=== PATIENT | male | born 1980 ===

== ENCOUNTER 2017-04-26 19:50 | Emergency (ER) | payer SELFPAY ==
[2017-04-26 19:59] VITALS: BP 134/87; PULSE 75; RESP 18; TEMP 98.9; O2SAT 99
--- NOTE | 2017-04-26 20:14 | ED PDOC ---
Lower Extremity Pain/Injury Time Seen by Provider: 04/26/17 19:56 Chief Complaint (Nursing): Lower Extremity Problem/Injury Chief Complaint (Provider): Left Knee Pain History Per: Patient History/Exam Limitations: no limitations Onset/Duration Of Symptoms: Days (x6) Current Symptoms Are (Timing): Still Present Additional Complaint(s): 36 year old male presenting to the ED complaining of left knee pain. 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 He states that he landed with all the weight on his left foot. Patient has taken nothing for pain. Denies previous fracture. Patient reports he has been limping since Friday. PMD: FAMILY PROVIDER,NO - Knee Description Of Injury: Fell Currently Unable To: Bend Or Move - Risk Factors DVT Risk Factors: Pos: None Past Medical History Reviewed: Historical Data, Nursing Documentation, Vital Signs Vital Signs: Last Vital Signs Temp 98.9 F 04/26/17 19:56 Pulse 75 04/26/17 19:56 Resp 18 04/26/17 19:56 BP 134/87 04/26/17 19:56 Pulse Ox 99 04/26/17 19:56 - Medical History PMH: No Chronic Diseases - Surgical History Surgical History: No Surg Hx - Family History Family History: States: Unknown Family Hx - Living Arrangements Living Arrangements: With Family - Social History Current smoker - smoking cessation education provided: No Ex-Smoker (has not smoked in the last 12 months): No Alcohol: None Drugs: Denies - Allergies Allergies/Adverse Reactions: Allergies Allergy/AdvReac Type Severity Reaction Status Date / Time No Known Allergies Allergy Verified 04/26/17 19:59 Review of Systems ROS Statement: Except As Marked, All Systems Reviewed And Found Negative Musculoskeletal: Positive for: Leg Pain (left), Other (left knee pain) Physical Exam - Reviewed Nursing Documentation Reviewed: Yes Vital Signs Reviewed: Yes - Physical Exam Appears: Positive for: No Acute Distress Head Exam: Positive for: NORMAL INSPECTION Skin: Positive for: Normal Color, Warm, Dry. Negative for: Rash Eye Exam: Positive for: Normal appearance, EOMI, PERRL Extremity: Positive for: Normal ROM (limited ROM of left leg secondary to pain) , Tenderness (tenderness to patella and medial and lateral aspect of left knee.) , Calf Tenderness, Other (no effusionor ecchymosis to left knee.). Negative for : Deformity, Swelling Neurologic/Psych: Positive for: Alert, Oriented - ECG O2 Sat by Pulse Oximetry: 99 (RA) Pulse Ox Interpretation: Normal Medical Decision Making Medical Decision Makin Initial Impression 36 y/o male presenting with left knee pain Initial Plan: * Reevaluation CT IMPRESSION: 1. Proximal fibular fracture. 2. Incidental/non-acute findings are described above. Pt placed in knee immobilizer and instructed in crutch walking. Given Ortho referral, and importance of follow up stressed Documented by Kathrin Irene acting as a scribe for Pastora Best PA-C. All medical record entries made by the Scribe were at my direction and personally dictated by me. I have reviewed the chart and agree that the record accurately reflects my personal performance of the history, physical exam, medical decision making, and the department course for this patient. I have also personally directed, reviewed, and agree with the discharge instructions and disposition. Disposition - Clinical Impression Clinical Impression: Fibula fracture - Patient ED Disposition Is Patient to be Admitted: No - Disposition Disposition: Routine/Home Disposition Time: 23:16 Condition: STABLE Forms: [facility] (Belarusian) - POA Present On Arrival: Falls Or Trauma
[2017-04-26] MEDS ORDERED: Oxycodone/Acetaminophen 5/325 mg Tab PO STA (20:40)
[2017-04-26] MEDS ORDERED: Oxycodone/Acetaminophen 5/325 mg Tab ONE (20:44)
--- NOTE | 2017-04-26 21:55 | CT ---
EXAM: CT Left Lower Extremity Without Intravenous Contrast, Knee CLINICAL HISTORY: 36 years old, male; Injury or trauma; Fall; Work related; Initial encounter; Laceration; Patella or knee; Left; Without foreign body; Injury date: Today; Injury details: Falling off roof at work; Additional info: R/O tibial plateau fracture TECHNIQUE: Axial computed tomography images of the left knee without intravenous contrast. All CT scans at this facility use one or more dose reduction techniques, viz.: automated exposure control; ma/kV adjustment per patient size (including targeted exams where dose is matched to indication; i.e. head); or iterative reconstruction technique. COMPARISON: CR - KNEE 3 VIEWS LT 2017-04-26 20:36 FINDINGS: Bones/joints: Apparent nondisplaced fracture head of fibula. No dislocation. Trace joint effusion. Soft tissues: Moderate stranding within anterior soft tissues. Punctate calcification or foreign body along soft tissues to patella. IMPRESSION: 1. Proximal fibular fracture. 2. Incidental/non-acute findings are described above.
--- NOTE | 2017-04-27 08:40 | RAD ---
PROCEDURE: Left Femur Radiographs. HISTORY: pain s/o fall from 6 ft COMPARISON: None. TECHNIQUE: Two single frontal views of the left femur been submitted. The request is for single view left femur radiograph. FINDINGS: FEMUR: No acute fracture or destructive bony lesion identified. SOFT TISSUES: Normal. OTHER FINDINGS: None. IMPRESSION: Unremarkable radiographs of the left femur.
--- NOTE | 2017-04-27 08:41 | RAD ---
PROCEDURE: Left Knee Radiographs. HISTORY: Pain. COMPARISON: None. FINDINGS: BONES: No acute fracture or destructive bony lesion identified. JOINTS: Normal. No osteoarthritis. JOINT EFFUSION: None. OTHER FINDINGS: None. IMPRESSION: Unremarkable radiographs of the left knee.
--- NOTE | 2017-04-27 08:47 | RAD ---
PROCEDURE: Radiographs of the left tibia and fibula. HISTORY: pain s/o fall from 6 ft COMPARISON: None available. TECHNIQUE: Frontal and lateral views obtained. FINDINGS: BONES: No fracture or destructive lesion appreciable. However see separate left knee CT exam without contrast which demonstrates a nondisplaced fibular fracture, also performed 04/26/2017. JOINT SPACES: Unremarkable. OTHER FINDINGS: None. IMPRESSION: Unremarkable radiographs of the left tibia and fibula. See separate left knee CT demonstrating left fibular fracture also performed 04/26/2017.
== END 2017-04-26 23:41 | disposition home or self-care (01) ==
LOC: H.ER 19:50
DX: S82.402A Unspecified fracture of shaft of left fibula, initial encounter for closed fracture (principal); W19.XXXA Unspecified fall, initial encounter; Y99.0 Civilian activity done for income or pay

== ENCOUNTER 2018-08-20 00:49 | Emergency (ER) | payer SELFPAY ==
[2018-08-20 02:07] LABS: URINE BILIRUBIN NEGATIVE (NEGATIVE); URINE BLOOD NEGATIVE (NEGATIVE); URINE CLARITY CLEAR (Clear); URINE COLOR COLORLESS (YELLOW); URINE GLUCOSE (UA) NEG (NEGATIVE); URINE LEUKOCYTE ESTERASE NEG Leu/uL (Negative); URINE PROTEIN NEGATIVE (NEGATIVE); URINE UROBILINOGEN 0.2-1.0 mg/dL (0.2-1.0)
--- NOTE | 2018-08-20 02:52 | ED PDOC ---
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 States its the lower back on both sides, worsened by activity, states it started after lifting heavy objects at work. States he had a previous injury 10 years ago and was diagnosed with "lumbago" but only was taking tylenol for pain. Denies numbness, weakness, loss of urine/stool, or any other symptoms. No fevers, chills. States he was also worried about his kidneys because he was having burning upon urination. Past Medical History Reviewed: Historical Data, Nursing Documentation Vital Signs: Last Vital Signs Temp 98.7 F 08/20/18 00:55 Pulse 74 08/20/18 00:55 Resp 16 08/20/18 00:55 BP 137/74 08/20/18 00:55 Pulse Ox 98 08/20/18 00:55 Primary Care Provider: FAMILY PROVIDER,NO - Medical History PMH: No Chronic Diseases - Family History Family History: States: Unknown Family Hx - Immunization History Hx Tetanus Toxoid Vaccination: No Hx Pneumococcal Vaccination: No - Home Medications Home Medications: Ambulatory Orders Medication Instructions Recorded Acyclovir [Zovirax] 800 mg PO 5XD #35 tab 01/14/18 Prednisone [Deltasone] 40 mg PO DAILY #8 tablet 01/14/18 traMADol [Ultram] 50 mg PO TID #7 tab 01/14/18 Cyclobenzaprine [Cyclobenzaprine 10 mg PO BID #15 tab 08/20/18 HCl] Ibuprofen [Motrin Tab] 600 mg PO Q6 #30 tab 08/20/18 Lidocaine 1 each TP DAILY #10 adh..patch 08/20/18 - Allergies Allergies/Adverse Reactions: Allergies Allergy/AdvReac Type Severity Reaction Status Date / Time No Known Allergies Allergy Verified 04/26/17 19:59 Review of Systems ROS Statement: Except As Marked, All Systems Reviewed And Found Negative Genitourinary Male: Positive for: Dysuria Musculoskeletal: Positive for: Back Pain Physical Exam - Reviewed Nursing Documentation Reviewed: Yes Vital Signs Reviewed: Yes - Physical Exam Appears: Positive for: Well, Non-toxic, No Acute Distress Head Exam: Positive for: ATRAUMATIC, NORMAL INSPECTION, NORMOCEPHALIC Skin: Positive for: Normal Color, Warm, DRY Gastrointestinal/Abdominal: Positive for: Soft. Negative for: Tenderness Back: Positive for: Vertebral Tenderness (Verterbral and paraverterbral tenderness of lumbar spine), Muscle Spasm. Negative for: L CVA Tenderness, R CVA Tenderness, Decreased ROM Extremity: Positive for: Normal ROM. Negative for: Tenderness Neurological/Psych: Negative for: Motor/Sensory Deficits - Laboratory Results Lab Results: Urine Color Colorless (YELLOW) 08/20/18 01:58 Urine Clarity Clear (Clear) 08/20/18 01:58 Urine pH 6.0 (5.0-8.0) 08/20/18 01:58 Ur Specific [place] < 1.005 (1.003-1.030) 08/20/18 01:58 Urine Protein Negative mg/dL (NEGATIVE) 08/20/18 01:58 Urine Glucose (UA) Neg mg/dL (NEGATIVE) 08/20/18 01:58 Urine Ketones Negative mg/dL (NEGATIVE) 08/20/18 01:58 Urine Blood Negative (NEGATIVE) 08/20/18 01:58 Urine Nitrate Negative (NEGATIVE) 08/20/18 01:58 Urine Bilirubin Negative (NEGATIVE) 08/20/18 01:58 Urine Urobilinogen 0.2-1.0 mg/dL (0.2-1.0) 08/20/18 01:58 Ur Leukocyte Esterase Neg Brittani/uL (Negative) 08/20/18 01:58 Urine RBC (Auto) 1 /hpf (0-3) 08/20/18 01:58 - ECG O2 Sat by Pulse Oximetry: 98 Pulse Ox Interpretation: Normal Medical Decision Making Medical Decision Makin37 year old with back pain and dysuria --Not concerned for pyelo --Back pain is likely MSK given history, not concerned for cord compression, AAA, or other serious pathology --Will treat symptomatically and re-eval 4AM [employer] Associate Account Director Used: [id number] --Patient feeling better, advised of urine and xray results --Strongly encouraged followup with PMD --Well appearing upon discharge Disposition - Clinical Impression Clinical Impression: Back pain - Patient ED Disposition Is Patient to be Admitted: No Counseled Patient/Family Regarding: Studies Performed, Diagnosis, Need For Followup, Rx Given - Disposition Referrals: [facility] [Outside] Disposition: Routine/Home Disposition Time: 04:05 Condition: GOOD Prescriptions: Cyclobenzaprine [Cyclobenzaprine HCl] 10 mg PO BID #15 tab Ibuprofen [Motrin Tab] 600 mg PO Q6 #30 tab Lidocaine 1 each TP DAILY #10 adh..patch Instructions: Low Back Pain in Adults, Back Exercises Forms: [facility] (Macedonian) Print Language: SLOVAK
[2018-08-20 04:47] VITALS: BP 113/58; PULSE 81; RESP 18; TEMP 98.6; O2SAT 97
--- NOTE | 2018-08-20 11:09 | RAD ---
Date of service: 08/20/2018 PROCEDURE: Radiographs of the Lumbar Spine. HISTORY: back pain s/p heavy lifting COMPARISON: No prior. TECHNIQUE: 5 views obtained. FINDINGS: BONES: Normal alignment. No listhesis. No fracture. DISC SPACES: Unremarkable. OTHER FINDINGS: None. IMPRESSION: Unremarkable radiographs of the lumbar spine.
== END 2018-08-20 04:25 | disposition home or self-care (01) ==
LOC: H.ER 00:49
DX: M54.9 Dorsalgia, unspecified (principal)
CPT/HCPCS: 72100; 81003; 96372; 99284; J1885